=== PATIENT | male | born 1995 ===

== ENCOUNTER 2018-01-07 10:07 | Emergency (ER) | payer OTHER ==
[2018-01-07 10:35] VITALS: BP 138/84
--- NOTE | 2018-01-07 11:01 | UC ---
Abdominal Pain Male HPI - HPI Summary HPI Summary: nausea and vomiting x 6 days only in the morning when he wakes up , vomiting multiple times in the morning for about one hr symptoms are gone for the rest of the day no abdominal pain , no diarrhea or constipation , no urinary sx, no fever, no chills - History of Current Complaint Chief Complaint: UCGeneralIllness Stated Complaint: ST/COUGH Time Seen by Provider: 01/07/18 10:26 Hx Obtained From: Patient Onset/Duration: Gradual Onset, Lasting Days - 6, Still Present Timing: Constant Severity Initially: Moderate Severity Currently: Moderate Pain Intensity: 8 Radiates: No Character: Not Applicable Aggravating Factor(s): Nothing Alleviating Factor(s): Nothing Associated Signs And Symptoms: Positive: Nausea, Vomiting. Negative: Negative, Diaphoresis, Fever, Cough, Chest Pain, Dizzy, Back Pain, Constipation, Blood in Stool, Urinary Symptoms, Decreased Appetite, Diarrhea - Allergies/Home Medications Allergies/Adverse Reactions: Allergies Allergy/AdvReac Type Severity Reaction Status Date / Time No Known Allergies Allergy Verified 01/07/18 10:30 Home Medications: Home Medications Guaifenesin/Dextromethorphan [Mucinex Dm Maximum Streng 60-1200 mg] 1 tab PO Q12HR PRN 01/07/18 [History Confirmed 01/07/18] PMH/Surg Hx/FS Hx/Imm Hx Previously Healthy: Yes - Surgical History Surgical History: None - Family History Known Family History: Negative: Diabetes - Social History Alcohol Use: Weekly Substance Use Type: None Smoking Status (MU): Never Smoked Tobacco Review of Systems Constitutional: Negative Skin: Negative Eyes: Negative ENT: Negative Respiratory: Negative Cardiovascular: Negative Gastrointestinal: Vomiting, Nausea Genitourinary: Negative Is Patient Immunocompromised?: No All Other Systems Reviewed And Are Negative: Yes Physical Exam Triage Information Reviewed: Yes Appearance: Well-Appearing, No Pain Distress, Well-Nourished Vital Signs: Initial Vital Signs Temp 98.1 F 01/07/18 10:27 Pulse 66 01/07/18 10:27 Resp 16 01/07/18 10:27 BP 138/84 01/07/18 10:27 Pulse Ox 100 01/07/18 10:27 Vital Signs Reviewed: Yes Eye Exam: Normal Eyes: Positive: Conjunctiva Clear ENT: Positive: Normal ENT inspection, Hearing grossly normal, Pharynx normal Neck exam: Normal Neck: Positive: Supple, Nontender, No Lymphadenopathy Respiratory: Positive: Chest non-tender, Lungs clear, Normal breath sounds Cardiovascular: Positive: RRR, No Murmur, Pulses Normal, Brisk Capillary Refill Abdominal Exam: Normal Abdomen Description: Positive: Nontender, Soft. Negative: CVA Tenderness (R), CVA Tenderness (L), Distended, Guarding Bowel Sounds: Positive: Present Skin Exam: Normal Abd Pain Male Course/Dx - Differential Dx/Clinical Impression Provider Diagnoses: GERD. gastritis Discharge - Sign-Out/Discharge Documenting (check all that apply): Patient Departure All imaging exams completed and their final reports reviewed: No Studies - Discharge Plan Condition: Stable Disposition: HOME Prescriptions: Omeprazole 40 mg PO DAILY WITH MEAL #30 capsule. Ondansetron [Zofran Odt] 8 mg PO QAM #10 tab.rapdis Patient Education Materials: Gastroesophageal Reflux Disease (DC) Referrals: No Primary Care Phys,NOPCP [Primary Care Provider] - 2 Weeks - Billing Disposition and Condition Condition: STABLE Disposition: Home
== END 2018-01-07 11:06 | disposition home or self-care (01) ==
LOC: UCCORT 10:07
DX: K21.9 Gastro-esophageal reflux disease without esophagitis (principal); K29.70 Gastritis, unspecified, without bleeding
CPT/HCPCS: 36415; 86703; 99202; G0463

== ENCOUNTER 2018-04-02 14:50 | Emergency (ER) | payer OTHER ==
[2018-04-02 15:19] VITALS: BP 131/68
--- NOTE | 2018-04-02 15:53 | ED ---
GI/ HPI - HPI Summary HPI Summary: pt presents to the for evaluation of possible herpes virus to his genitalia. he states that the girl he has been having sex with recently just had an outbreak. he states that they last had sex approx 1 week ago. she now has a horrific outbreak. he states the other 2 girls he had sex with this semester have not had a herpes outbreak that he is aware of. He denies ever having any lesions. - History of Current Complaint Chief Complaint: UCGeneralIllness Stated Complaint: PERSONAL Hx Obtained From: Patient Current Severity: None Pain Intensity: 0 - Allergy/Home Medications Allergies/Adverse Reactions: Allergies Allergy/AdvReac Type Severity Reaction Status Date / Time No Known Allergies Allergy Verified 04/02/18 15:13 Home Medications: Home Medications NK [No Home Medications Reported] 04/02/18 [History Confirmed 04/02/18] PMH/Surg Hx/FS Hx/Imm Hx Previously Healthy: Yes Infectious Disease History: No Infectious Disease History: Denies: Traveled Outside the [place] in Last 30 Days - Family History Known Family History: Negative: Diabetes - Social History Alcohol Use: Occasionally Substance Use Type: Reports: None Smoking Status (MU): Current Some Day Smoker Type: eCigarettes Amount Used/How Often: socially Review of Systems Constitutional: Negative Eyes: Negative ENT: Negative Cardiovascular: Negative Respiratory: Negative Gastrointestinal: Negative Genitourinary: Negative Musculoskeletal: Negative Skin: Negative Neurological: Negative Psychological: Normal All Other Systems Reviewed And Are Negative: No Physical Exam Triage Information Reviewed: Yes Vital Signs On Initial Exam: Initial Vitals Temp Pulse Resp BP Pulse Ox 98.9 F 80 15 131/68 100 04/02/18 15:13 04/02/18 15:13 04/02/18 15:13 04/02/18 15:13 04/02/18 15:13 Vital Signs Reviewed: Yes Appearance: Positive: Well-Appearing, No Pain Distress, Well-Nourished Skin: Positive: Warm, Dry Head/Face: Positive: Normal Head/Face Inspection Eyes: Positive: Normal, EOMI, RAIMUNDO ENT: Positive: Normal ENT inspection, Hearing grossly normal, Pharynx normal Neck: Positive: Supple, Nontender Respiratory/Lung Sounds: Positive: Clear to Auscultation, Breath Sounds Present Cardiovascular: Positive: Normal, RRR Abdomen Description: Positive: Nontender, Soft Bowel Sounds: Positive: Present Male Genital Exam: Positive: Normal Genitalia, Other - no lesions noted to perineum, testicles, penis, no penile discharge Musculoskeletal: Positive: Normal, Strength/ROM Intact Neurological: Positive: Normal Psychiatric: Positive: Normal AVPU Assessment: Alert Diagnostics - Vital Signs Vital Signs Temp Pulse Resp BP Pulse Ox 04/02/18 15:13 98.9 F 80 15 131/68 100 - Laboratory Lab Statement: Any lab studies that have been ordered have been reviewed, and results considered in the medical decision making process. GIGU Course/Dx - Course Course Of Treatment: pt is very concerned that he gave his girlfriend herpes. he denies ever having genital herpes. he states that he has had an occasional sore to his lips. he states that they had oral sex but he states it was very short lived. he denies having any sores to his mouth when they had sex which was approximately 1 week ago. he states he is worried that he ruined her life. On genital exam, there are no obvious lesions. I informed him that I am unable to test for herpes unless he has active sores. We discussed blood work, however, I informed him that any HSV test would be very non-specific and would not give us any information as to whether he has genital herpes. Pt discharged and given strict instructions to use a condom always. pt discharged. - Diagnoses Provider Diagnoses: Feeling worried Discharge - Sign-Out/Discharge Documenting (check all that apply): Patient Departure All imaging exams completed and their final reports reviewed: No Studies - Discharge Plan Condition: Stable Disposition: HOME Patient Education Materials: Sexually Transmitted Diseases (ED) Referrals: No Primary Care Phys,NOPCP [Primary Care Provider] - [facility] [Provider Group] Additional Instructions: Please wear a condom every time you have sex. please follow up with your primary care physician. if you do not have one, I have given you a referral to a primary care physician office in the area. - Billing Disposition and Condition Condition: STABLE Disposition: Home
== END 2018-04-02 16:04 | disposition home or self-care (01) ==
LOC: UCCORT 14:50
DX: Z03.89 Encounter for observation for other suspected diseases and conditions ruled out (principal); F17.210 Nicotine dependence, cigarettes, uncomplicated
CPT/HCPCS: 99211; G0463